=== PATIENT | female | born 1975 | race Caucasian/White ===

== ENCOUNTER 2023-03-26 07:36 | Emergency (ER) | payer OTHER, SELFPAY ==
[2023-03-26] VITALS (16 sets, daily range): BP systolic 129–164; BP diastolic 85–105; PULSE 64–140; RESP 12–28; TEMP 36.8; O2SAT 95–100
--- NOTE | ~2023-03-26 | XR_ITS ---
XR chest 2V DATE: 03/26/2023 08:32 INDICATION: Epigastric pain, weight loss, nausea TECHNIQUE: PA and lateral views COMPARISON: None FINDINGS: Normal heart size. No hilar or mediastinal enlargement. No pulmonary infiltrate or consolid ation, pleural effusion or pulmonary vascular congestion or pneumothorax. Dextroscoliosis of the upper thoracic spine. IMPRESSION: No active cardiopulmonary disease Reviewed, dictated and finalized at [facility]
--- NOTE | ~2023-03-26 | CT_ITS ---
CT of the Abdomen and Pelvis: Indication: Epigastric Technique: 2.5 mm axial scans were obtained through the abdomen and pelvis following intravenous adm inistration of 100 cc of Omnipaque 350. Dose reduction technique was used on this scan by utilizing a utomated exposure control and iterative reconstruction technique. The dose-length product (DLP) was 4 40.40 mGy-cm. Findings: Scans through the lung bases are unremarkable. The liver, spleen, pancreas, gallbladder, left adrenal gland, and kidneys are within normal limits. 1 cm right adrenal gland nodule is present, indeterminate, statistically most likely benign. No eviden ce of aortic aneurysm. No lymphadenopathy. No bowel obstruction or bowel wall thickening. There is no evidence to suggest acute appendicitis. Ti ny fat-containing umbilical hernia present. Images through the pelvis were performed. Urinary bladder unremarkable. No adnexal mass seen. No asci jomar. Impression: Tiny fat-containing umbilical hernia. 1 cm right adrenal nodule is indeterminate, though statistically most likely benign. Reviewed, dictated and finalized at [facility]. [employer] Impression: Tiny fat-containing umbilical hernia. 1 cm right adrenal nodule is indeterminate, though statistically most likely be nign.
[2023-03-26 08:05] LABS: Basophils Percent Auto 0.5 % (0.2-1.2); Eosinophils Percent Auto 0.1 % (0-4.4); Hemoglobin 16.6 g/dL (12.0-15.0); Immature Granulocyte Absolute 0.01 K/mm3 (0.00-0.031); Immature Granulocyte Percent A 0.1 % (0-0.5); Lymphocytes Absolute Auto 1.21 K/mm3 (0.9-3.2); Lymphocytes Percent Auto 15.5 % (18.3-44.2); Mean Corpuscular HGB Conc 33.2 g/dl (32-36); Mean Corpuscular Hemoglobin 30.9 pg (26-34); Mean Corpuscular Volume 93.1 fl (80-100); Mean Platelet Volume 11.6 fl (7.4-10.4); Monocytes Absolute Auto 0.6 K/mm3 (0.1-0.6); Monocytes Percent Auto 7.9 % (2.6-8.5); Neutrophils Absolute Auto 5.9 K/mm3 (1.3-6.7); Neutrophils Percent Auto 75.9 % (45.5-73.1); Platelet Count Result 298 k/mm3 (150-375); Red Blood Count 5.37 M/mm3 (4.2-5.4); Red Cell Distribution Width 12.1 % (11.5-14.5); White Blood Count 7.8 K/mm3 (4.5-10.0)
[2023-03-26 08:15] LABS: Alanine Aminotransferase 18 U/L (6-35); Albumin Level 4.8 g/dL (3.5-5.1); Alkaline Phosphatase 96 U/L (38-126); Anion Gap 13 mmol/L (8-16); Aspartate Amino Transferase 24 U/L (14-36); Blood Urea Nitrogen 10 mg/dL (7-17); Calcium 9.8 mg/dL (8.4-10.2); Carbon Dioxide 24 mmol/L (22-30); Chloride 104 mmol/L (98-107); Estimated CRCL calculation 62 ml/min; Estimated Glomerular Filt Rate > 60; Glucose 102 mg/dL (65-110); Lipase 165 U/L (23-300); Potassium 3.6 mmol/L (3.4-5.0); Sodium 141 mmol/L (137-145)
[2023-03-26 08:18] LABS: Add Urine Microscopic? YES; Appearance Urine Cloudy (Clear); Bacteria Urine 4+ /hpf; Bilirubin Urine 1+ (Negative); Blood Urine 1+ (Negative); Color Urine Dark Yellow (Yellow); Glucose Urine UA Negative (Negative); Hyaline Casts Urine Present /lpf; Ketones Urine Trace mg/dL (Negative); Leukocyte Esterase Ur Trace LEU/UL (Negative); Need Manual Microscopic Reviewed; Nitrate Urine Negative (Negative); Non Pathogenic Casts >20; Protein Urine 1+ mg/dL (Negative); Specific Grav Ur 1.025 (1.001-1.035); Squamous Epithelial Cell Urine Many /hpf (Few); pH Urine 5.5 (5.0-9.0)
[2023-03-26] MEDS: MORPHINE SULFATE (*CRX) 4 MG/ML INJ IV PUSH (08:19)
[2023-03-26] MEDS: SODIUM CHLORIDE 0.9% IV 1,000 ML 999 ML IV CONT (08:19)
[2023-03-26] MEDS: ONDANSETRON INJ 4 MG/2 ML VIAL IV PUSH (08:27)
[2023-03-26 09:02] LABS: INR 1.1; Prothrombin Time 14.8 Seconds (11.1-14.7)
[2023-03-26 09:03] LABS: Partial Thromboplastin Time 35.8 SECONDS (22.3-36.8)
[2023-03-26 10:32] LABS: Thyroid Stimulating Hormone Reflex 0.553 uIU/mL (0.465-4.68)
--- NOTE | 2023-03-26 12:02 | ED.GENADULT ---
HPI - General Adult General Chief complaint: Abdominal Pain Stated complaint: INT ABD PAIN AND WT LOSS [id number] Time Seen by Provider: 03/26/23 07:53 History of Present Illness HPI narrative: patient is a 47-year-old female who presents ER with abdominal pain and wait list. Ongoing for 6 months. Reports 30 lb weight loss. She has been having intermittent cramping of her abdomen with occasional blood in her stools. No history of colonoscopy. She has not had an EGD. She has epigastric fullness and pain. No fevers chills or sweats. She reports increased anxiety and weakness. She has had poor sleep. Related Data Allergies Allergy/AdvReac Type Severity Reaction Status Date / Time No Known Allergies Allergy Unverified 10/14/21 10:03 Review of Systems Review of Systems: All systems reviewed & are unremarkable except as noted in HPI and below Constitutional: Constitutional: Reports fatigue and Reports weakness ENT: Reports system reviewed and no additional complaints, except as documented Cardiovascular: Cardiovascular: Reports no additional cardiovascular complaints Respiratory: Respiratory: Reports no additional respiratory complaints Gastrointestinal: Gastrointestinal: Denies diarrhea, Denies nausea and Denies vomiting Comments: Blood in stool Genitourinary: Genitourinary: Reports no additional female genitourinary complaints [facility] Past Medical History Medical History (Updated 03/26/23 @ 12:29 by Efra Mike MD) Screening mammogram, encounter for Surgical History Surgical History (Updated 10/14/21 @ 10:06 by ELMER Tucker) Delivery by section (02/28/00) primary c/s Delivery by section (11/13/04) rpt c/s Delivery by section (12/21/09) rpt c/s H/O tubal ligation (12/21/09) Family History Family History (Updated 10/14/21 @ 10:09 by ELMER Tucker) Father Diabetes mellitus Afib Leukemia Mother Diabetes mellitus Multiple sclerosis Kidney failure, acute Sibling Rectal cancer brother Social History Social History (Updated 10/14/21 @ 10:10 by ELMER Tucker) Smoking status: Former smoker Tobacco type: cigarettes Alcohol intake: current Alcohol use details: 1 month ? 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 HEAD: Normocephalic, atraumatic. ENT: Mucous membranes moist. NECK: Supple. CHEST: Clear to auscultation. No respiratory distress. HEART: Regular rate and rhythm. Normal peripheral pulses. ABDOMEN: Soft, moderate tenderness left abdomen without guarding, nondistended. EXTREMITIES: Normal range of motion. No edema. SKIN: Warm, dry, no rash. NEURO: Alert and oriented x3. PSYCH: Normal mood and affect. Course Course Emergency Course: patient resting comfortably. Informed results which are reassuring. Will place on antibiotics as caution given abnormal urinalysis. Patient felt appropriate for outpatient follow-up with PCP. Vital Signs Vital signs: Vital Signs Temperature 98.3 F 03/26/23 07:41 Pulse Rate 140 H 03/26/23 07:41 Respiratory Rate 16 03/26/23 07:41 Blood Pressure 164/86 H 03/26/23 07:41 Pulse Oximetry 99 03/26/23 07:41 Oxygen Delivery Room Air 03/26/23 07:41 Temperature 98.3 F 03/26/23 07:41 Pulse Rate 71 03/26/23 12:40 Respiratory Rate 18 03/26/23 12:40 Blood Pressure 144/96 H 03/26/23 09:04 Pulse Oximetry 100 03/26/23 12:40 Oxygen Delivery Room Air 03/26/23 07:41 Medical Decision Making Vital Signs Vital Signs:
== END 2023-03-26 12:40 | disposition home or self-care (01) ==
PROVIDERS: Emergency Provider Emergency Medicine; PCP Family Medicine
DX: N39.0 Urinary tract infection, site not specified (principal); R10.13 Epigastric pain; Z87.891 Personal history of nicotine dependence; K42.9 Umbilical hernia without obstruction or gangrene; E27.8 Other specified disorders of adrenal gland
CPT/HCPCS: 36415; 71046; 74177; 80053; 81001; 81025; 83690; 84443; 85025; 85610; 85730; 86850; 86900; 86901; 87086; 87088; 96361; 96374; 96375; 99284; J2270; J2405; J7030; Q9967

== ENCOUNTER 2023-05-21 01:09 | Day surgery (SDC) | payer OTHER, SELFPAY ==
[2023-05-01 14:01] VITALS: BMI 25.0
--- NOTE | 2023-05-19 10:09 | SUR.PREOP ---
Patient called regarding upcoming procedure. Reviewed preop instructions, appointment times, and procedure prep.
[2023-05-21 07:54] VITALS: BP 140/92; PULSE 85; RESP 20; TEMP 36; O2SAT 98
[2023-05-21] MEDS: LACTATED RINGERS 1,000 ML 150 ML IV CONT (08:05)
--- NOTE | 2023-05-21 08:20 | WPDANESEPPF ---
Anes - Initial Pre Proc Eval Procedure: Operation Date: 05/21/23 08:30 Proposed Procedures p Esophagogastroduodenoscopy & Colonoscopy - Jake Dockery MD Date/Time: 05/21/23 08:20 Surgeon: Jake Dockery MD Pre Op Diagnosis: abnormal weight loss, anorexia, nausea Patient Data Age: 47 Gender: F Height: 1.65 m Weight: 67 kg Last Vital Signs Temp 96.8 F L 05/21/23 07:54 Pulse 85 05/21/23 07:54 Resp 20 05/21/23 07:54 BP 140/92 H 05/21/23 07:54 Pulse Ox 98 05/21/23 07:54 O2 Del Method Room Air 05/21/23 07:54 Allergies Allergy/AdvReac Type Severity Reaction Status Date / Time No Known Allergies Allergy Verified 05/21/23 07:52 Home Medications Medication Instructions Recorded Confirmed Type aspirin 81 mg tablet 81 mg PO DAILY 05/01/23 05/01/23 History Patient hx anesthesia problems: none Family hx anesthesia problems: none Results Review: All pre-operative results and documents have been reviewed as part of the pre-operative evaluation. [facility] Past Medical History Medical History Screening mammogram, encounter for Surgical History Surgical History Delivery by section (02/28/00) primary c/s Delivery by section (11/13/04) rpt c/s Delivery by section (12/21/09) rpt c/s H/O tubal ligation (12/21/09) Family History Family History Father Diabetes mellitus Afib Leukemia Mother Diabetes mellitus Multiple sclerosis Kidney failure, acute Sibling Rectal cancer brother Social History Social History (Updated 04/02/23 @ 14:59 by Dayna Fsih) Social History: Smoking packs per day: 1 Smoking cigarettes per day: 20.0 Years smoked: 30 Smoking pack-years: 30.00 Smoking status: Former smoker Tobacco type: cigarettes and e-cigarettes/vaping Alcohol intake: former Substance use: current Substance use type: marijuana Last use: Daily Do You Feel Safe in your Home?: Yes Lack of Transportation: No Lack of Food: Never True Current Housing: I Have Housing Concerned About Future Housing: No Difficulty Paying Gas/Electric Bills: No Difficulty Paying for Meds: No Currently Unemployed: No Education: Trade/Vocational Certificate Difficulty w/ Childcare or Family Care: No Living arrangements: with family Occupation/Education: occupation 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 Gender identity (if verbalized by the patient): Female Sexual Orientation (if Verbalized by the Patient): Straight or Heterosexual Spiritual care concerns: No Anes - Eval Final PreProcedure Day of Procedure 05/21/23 08:20 Patient weight: normal Heart: regular rate and rhythm Lungs: clear to auscultation Airway: Mallampati scale class II Neurological: alert and oriented Last oral intake: >/= 8 hours ASA classification: II Emergent: no Anesthetic plan: proceed Anesthesia type and monitoring: general GIVS and standard monitoring Results Review: All pre-operative results and documents have been reviewed as part of the pre-operative evaluation. Informed Consent: The patient's anesthetic plan and its attendant risks and benefits were discussed with the patient/family/POA. Questions were solicited and answers provided to the satisfaction of the patient/family/POA.
--- NOTE | 2023-05-21 08:41 | PM.HPGS ---
History of Present Illness History of Present Illness Consent: Risks, benefits, and alternatives have been discussed and questions answered. Patient agrees to proceed with procedure. Chief complaint: abnormal weight loss, anorexia, nausea Narrative: Octavia Toussaint is a 47 year old female with weight loss, decrease appetite and intermittent blood loss anemia, CT scan negative. Never had scopes Review of Systems Constitutional: Constitutional: Denies headache(s) and Denies weakness Eyes: Eyes: Denies blurry vision ENT: Reports Normal hearing present, Denies headache(s) and Denies neck pain Cardiovascular: Cardiovascular: Denies chest pain and Denies dyspnea Respiratory: Respiratory: Denies dyspnea Gastrointestinal: Gastrointestinal: Reports no additional gastrointestinal complaints Genitourinary: Genitourinary: Denies dysuria Musculoskeletal: Musculoskeletal: Denies neck pain Integumentary/Breasts: Skin/Breast: Denies dry skin Neurologic: Reports Normal hearing present, Denies headache(s) and Denies weakness Psychiatric: Psychiatric: Denies anxiety Endocrine: Endocrine: Denies change in body appearance Hematologic/Lymphatic: Hematologic/Lymphatic: Denies easy bleeding Allergic/Immunologic: Allergic/Immunologic: Denies urticaria PMFSH Past Medical History Medical History Screening mammogram, encounter for Surgical History Surgical History Delivery by section (02/28/00) primary c/s Delivery by section (11/13/04) rpt c/s Delivery by section (12/21/09) rpt c/s H/O tubal ligation (12/21/09) Family History Family History Father Diabetes mellitus Afib Leukemia Mother Diabetes mellitus Multiple sclerosis Kidney failure, acute Sibling Rectal cancer brother Social History Social History (Updated 04/02/23 @ 14:59 by Dayna Fish) Social History: Smoking packs per day: 1 Smoking cigarettes per day: 20.0 Years smoked: 30 Smoking pack-years: 30.00 Smoking status: Former smoker Tobacco type: cigarettes and e-cigarettes/vaping Alcohol intake: former Substance use: current Substance use type: marijuana Last use: Daily Do You Feel Safe in your Home?: Yes Lack of Transportation: No Lack of Food: Never True Current Housing: I Have Housing Concerned About Future Housing: No Difficulty Paying Gas/Electric Bills: No Difficulty Paying for Meds: No Currently Unemployed: No Education: Trade/Vocational Certificate Difficulty w/ Childcare or Family Care: No Living arrangements: with family Occupation/Education: occupation 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 Gender identity (if verbalized by the patient): Female Sexual Orientation (if Verbalized by the Patient): Straight or Heterosexual Spiritual care concerns: No Meds Home Medications and Allergies Home Medications Medication Instructions Recorded Confirmed Type aspirin 81 mg tablet 81 mg PO DAILY 05/01/23 05/01/23 History Allergies Allergy/AdvReac Type Severity Reaction Status Date / Time No Known Allergies Allergy Verified 05/21/23 07:52 Vital Signs Vital Signs - 24 hr 05/21/23 07:54 Temperature 96.8 F L Pulse Rate 85 Respiratory Rate 20 Blood Pressure 140/92 H Pulse Oximetry 98 Oxygen Delivery Room Air Exam Const: General: comfortable and no acute distress HENMT: Face/Nose/Sinus: Normal nares present Eyes: General: appearance normal, both eyes and all related structures Neck: Neck: no JVD Resp: Auscultation: clear to auscultation bilaterally Cardio: Rate: regular rate Rhythm: regular rhythm GI: Inspection: non-distended GI Palp: Yes Soft to palpation Skin: General skin exam: normal color Neuro: General: gait martin
--- NOTE | 2023-05-21 08:52 | SUR.OPER ---
EGD START: 843; END: 846. COLONOSCOPY START: 851; END:858.
[2023-05-21 09:01] VITALS: BP 99/68; PULSE 79; RESP 16; O2SAT 98
[2023-05-21 09:11] VITALS: BP 110/68; PULSE 66; RESP 15; O2SAT 99
[2023-05-21 09:21] VITALS: BP 114/74; PULSE 67; RESP 13; O2SAT 99
== END 2023-05-21 09:37 | disposition home or self-care (01) ==
PROVIDERS: PCP Family Medicine; Visit Provider Internal Medicine Gastroenterology
PROC: 0DJ08ZZ Inspection of Upper Intestinal Tract, Via Natural or Artificial Opening Endoscopic (ICD-10-PCS; CPT 43235; principal; 2023-05-21 08:30)
DX: K29.80 Duodenitis without bleeding (principal); K21.9 Gastro-esophageal reflux disease without esophagitis; K64.8 Other hemorrhoids; K57.30 Diverticulosis of large intestine without perforation or abscess without bleeding; F12.90 Cannabis use, unspecified, uncomplicated; Z79.82 Long term (current) use of aspirin; Z87.891 Personal history of nicotine dependence; Z82.49 Family history of ischemic heart disease and other diseases of the circulatory system; Z80.0 Family history of malignant neoplasm of digestive organs
CPT/HCPCS: 43239; 45378; 88305; J2001; J2704; J7120